=== PATIENT | male | born 1970 | race Two or more races ===

== ENCOUNTER 2023-11-25 18:43 | Inpatient (IN) | payer MEDICAID, OTHER ==
[~2023-11-25] VITALS: Ht 182.9 cm; Wt 97.7 kg
[2023-11-25] MEDS: SODIUM CHLORIDE 0.9% 1,000 ML IV SCH (01:26)
[2023-11-25 20:03] LABS: Basophils # (auto) 0.1 10 ^3/uL (0-0.2); Basophils % (auto) 0.4 % (0.0-2.0); Eosinophils # (auto) 0.2 10 ^3/uL (0-0.8); Eosinophils % (auto) 1.4 % (0.0-7.0); Hematocrit 45.2 % (41.0-53.0); Hemoglobin 14.9 g/dL (13.5-17.5); Lymphocytes # (auto) 1.4 10 ^3/uL (0.4-5.4); Lymphocytes % (auto) 9.5 % (10.0-50.0); Mean Corpuscular Hemoglobin 31.7 pg (28.0-32.0); Mean Corpuscular Volume 96.3 fL (80.0-100.0); Monocytes % (auto) 6.8 % (0.0-12.0); Neutrophils # (auto) 11.9 10 ^3/uL (1.6-8.6); Neutrophils % (auto) 81.9 % (37.0-80.0); Nucleated Red Blood Cells % 0.1 %; Red Blood Cells 4.69 10^6/uL (4.5-5.90); Red Cell Distribution Width 13.5 % (11.8-14.3); White Blood Cell 14.5 10^3/uL (4.4-10.8)
[2023-11-25 20:15] LABS: Chloride 95 mmol/L (98-107); Potassium 3.9 mmol/L (3.5-5.1); Sodium 127 mmol/L (136-145)
[2023-11-25 20:16] LABS: Anion Gap 5 (5-15); Calcium 7.9 mg/dL (8.7-10.4); Carbon Dioxide 27 mmol/L (20-30)
[2023-11-25 20:21] LABS: BUN/Creatinine Ratio 12.3 (10.0-20.0); Blood Urea Nitrogen 14 mg/dL (9-23); Lipase 22 U/L (12-53)
[2023-11-25 20:24] LABS: Glucose 440 mg/dL (74-106)
[2023-11-25] MEDS: ONDANSETRON HCL 4 MG/2 ML VIAL IM ONE (20:57)
[2023-11-25] MEDS: HYDROmorphone HCL 2 MG/ML VL/or syr IM ONE (20:57)
[2023-11-25] MEDS: INSULIN LISPRO (HUMAN) 100 UNITS/ML ML SC ONE (20:59)
[2023-11-25 21:07] LABS: Urine Bacteria FEW /hpf (None Seen); Urine Blood 2+ /uL (Negative); Urine Clarity HAZY (Clear); Urine Color Yellow (Yellow); Urine Protein, UAD 1+ (Negative); Urine Specific Gravity 1.021 (1.001-1.035); Urine WBC 453 /hpf (0 - 3)
[2023-11-25] MEDS: SODIUM CHLORIDE 0.9% 1,000 ML IV ONE (21:27)
[2023-11-25] MEDS ORDERED: ONDANSETRON HCL 4 MG/2 ML VIAL IV PRN (22:15)
[2023-11-25] MEDS ORDERED: DEXTROSE (50%) 50ML SYRG IV PRN (22:15)
[2023-11-25] MEDS ORDERED: DOCUSATE SOD 100 MG CAP PO PRN (22:15)
[2023-11-25] MEDS ORDERED: ACETAMINOPHEN 325 MG TAB PO PRN (22:15)
[2023-11-25] MEDS ORDERED: NITROGLYCERIN 0.4 MG SL TAB SL PRN (23:00)
[2023-11-25] MEDS ORDERED: MORPHINE SULFATE INJ 2 MG/ml SYRG IV PRN (23:00)
[2023-11-25] MEDS: CALCIUM GLUC 1,000mg/50ml-NS 50 ML IV SCH (23:05)
[2023-11-25] MEDS: levoFLOXacin 750MG 150 ML IV ONE (23:44)
[2023-11-25] MEDS: CEFTRIAXONE SODIUM 2 GM in D5W 5% 100 ML IV ONE (23:45)
[2023-11-25] MEDS: InsuLIN REG 1unit/0.01ml Soln (100units/ml) SC SCH (23:57)
[2023-11-25] MEDS: ACCU-CHEK COMFORT CURVE STRIP VI SCH (23:58)
[2023-11-26] VITALS (8 sets, daily range): BP systolic 121–131; BP diastolic 63–93; PULSE 69–99; RESP 16–22; TEMP 98.1–99.5; O2SAT 90–100
[2023-11-26] MEDS: SODIUM CHLORIDE 0.9% 1,000 ML IV ONE (00:18)
[2023-11-26] MEDS: INSULIN LANTUS (GLARGINE) 1 /0.01ml (100units/ml) SC SCH ×2 (00:31→21:51)
[2023-11-26] MEDS ORDERED: IBU600T PO (04:56)
[2023-11-26 05:38] LABS: Basophils # (auto) 0.1 10 ^3/uL (0-0.2); Basophils % (auto) 0.5 % (0.0-2.0); Eosinophils # (auto) 0.2 10 ^3/uL (0-0.8); Eosinophils % (auto) 1.8 % (0.0-7.0); Hematocrit 41.8 % (41.0-53.0); Hemoglobin 13.8 g/dL (13.5-17.5); Lymphocytes # (auto) 1.2 10 ^3/uL (0.4-5.4); Lymphocytes % (auto) 10.5 % (10.0-50.0); Mean Corpuscular Hemoglobin 32.3 pg (28.0-32.0); Mean Corpuscular Hgb Conc. 33.2 g/dL (32.0-36.0); Mean Corpuscular Volume 97.5 fL (80.0-100.0); Monocytes # (auto) 0.9 10 ^3/uL (0-1.3); Monocytes % (auto) 7.7 % (0.0-12.0); Neutrophils # (auto) 8.8 10 ^3/uL (1.6-8.6); Neutrophils % (auto) 79.5 % (37.0-80.0); Nucleated Red Blood Cells % 0.1 %; Red Blood Cells 4.28 10^6/uL (4.5-5.90); Red Cell Distribution Width 13.7 % (11.8-14.3); White Blood Cell 11.1 10^3/uL (4.4-10.8)
[2023-11-26 06:00] LABS: Albumin 2.7 g/dL (3.2-4.8); Alkaline Phosphatase 139 U/L (46-116); Anion Gap 6 (5-15); Aspartate Aminotransferase 15 U/L (13-40); BUN/Creatinine Ratio 8.2 (10.0-20.0); Bilirubin, Total 1.4 mg/dL (0.2-1.0); Blood Urea Nitrogen 8 mg/dL (9-23); Calcium 8.1 mg/dL (8.7-10.4); Carbon Dioxide 24 mmol/L (20-30); Chloride 101 mmol/L (98-107); Sodium 131 mmol/L (136-145)
[2023-11-26 06:01] LABS: Total Protein 7.2 g/dL (5.7-8.2)
[2023-11-26 06:04] LABS: Alanine Aminotransferase < 9 U/L (7-40); Glucose 320 mg/dL (74-106)
[2023-11-26] MEDS: MORPHINE SULFATE INJ 2 MG/ml SYRG IV PRN (06:57)
[2023-11-26] MEDS ORDERED: cefTRIAXone 1GM/50ML D5W 50 ML IV SCH (21:00)
[2023-11-26] MEDS: PIPERACILLIN-TAZOB 3.375GM 100 ML IV SCH (21:45)
[2023-11-27] VITALS (7 sets, daily range): BP systolic 106–142; BP diastolic 57–78; PULSE 73–91; RESP 18–19; TEMP 98.5–99.6; O2SAT 90–99
[2023-11-27 06:29] LABS: Basophils # (auto) 0 10 ^3/uL (0-0.2); Basophils % (auto) 0.5 % (0.0-2.0); Chloride 105 mmol/L (98-107); Eosinophils # (auto) 0.2 10 ^3/uL (0-0.8); Hematocrit 36.5 % (41.0-53.0); Hemoglobin 12.3 g/dL (13.5-17.5); Lymphocytes # (auto) 0.9 10 ^3/uL (0.4-5.4); Lymphocytes % (auto) 13.4 % (10.0-50.0); Mean Corpuscular Hemoglobin 32.6 pg (28.0-32.0); Mean Corpuscular Hgb Conc. 33.6 g/dL (32.0-36.0); Mean Corpuscular Volume 96.9 fL (80.0-100.0); Monocytes # (auto) 0.7 10 ^3/uL (0-1.3); Monocytes % (auto) 9.4 % (0.0-12.0); Neutrophils # (auto) 5.1 10 ^3/uL (1.6-8.6); Neutrophils % (auto) 73.7 % (37.0-80.0); Potassium 3.4 mmol/L (3.5-5.1); Red Blood Cells 3.77 10^6/uL (4.5-5.90); Red Cell Distribution Width 13.7 % (11.8-14.3); Sodium 135 mmol/L (136-145)
[2023-11-27 06:30] LABS: Anion Gap 6 (5-15); Carbon Dioxide 24 mmol/L (20-30)
[2023-11-27 06:31] LABS: Calcium 7.8 mg/dL (8.7-10.4)
[2023-11-27 06:35] LABS: BUN/Creatinine Ratio 8.2 (10.0-20.0); Blood Urea Nitrogen 8 mg/dL (9-23)
[2023-11-27 06:50] LABS: Glucose 191 mg/dL (74-106)
[2023-11-27] MEDS ORDERED: VANCOMYCIN PER PHARMACY 0 MG IV SCH (11:15)
[2023-11-27] MEDS: POTASSIUM EFFERVESENT TAB 25 MEQ PO ONE (11:37)
[2023-11-27] MEDS: VANCOMYCIN 1GM/200ML 200 ML IV ONE (11:39)
[2023-11-27] MEDS: HYDROcodone-ACET 5/325MG TAB PO PRN (15:15)
[2023-11-27] MEDS: VANCOMYCIN 1GM/200ML 200 ML IV SCH (19:55)
[2023-11-28 05:00] VITALS: BP 138/81; PULSE 84; RESP 18; TEMP 99; O2SAT 91
[2023-11-28 06:32] LABS: Chloride 104 mmol/L (98-107); Potassium 3.2 mmol/L (3.5-5.1); Sodium 135 mmol/L (136-145)
[2023-11-28 06:33] LABS: Anion Gap 5 (5-15); Calcium 7.8 mg/dL (8.5-10.1); Carbon Dioxide 26 mmol/L (20-30)
[2023-11-28 06:35] LABS: Basophils # (auto) 0 10 ^3/uL (0-0.2); Basophils % (auto) 0.4 % (0.0-2.0); Eosinophils # (auto) 0.3 10 ^3/uL (0-0.8); Eosinophils % (auto) 3.7 % (0.0-7.0); Hematocrit 36.4 % (41.0-53.0); Hemoglobin 12.3 g/dL (13.5-17.5); Lymphocytes # (auto) 1.3 10 ^3/uL (0.4-5.4); Lymphocytes % (auto) 16.8 % (10.0-50.0); Mean Corpuscular Hemoglobin 32.2 pg (28.0-32.0); Mean Corpuscular Hgb Conc. 33.7 g/dL (32.0-36.0); Mean Corpuscular Volume 95.4 fL (80.0-100.0); Monocytes # (auto) 0.7 10 ^3/uL (0-1.3); Monocytes % (auto) 8.8 % (0.0-12.0); Neutrophils # (auto) 5.3 10 ^3/uL (1.6-8.6); Neutrophils % (auto) 70.3 % (37.0-80.0); Nucleated Red Blood Cells % 0.1 %; Red Blood Cells 3.81 10^6/uL (4.5-5.90); Red Cell Distribution Width 13.3 % (11.8-14.3); White Blood Cell 7.6 10^3/uL (4.4-10.8)
[2023-11-28 06:38] LABS: BUN/Creatinine Ratio 9.2 (10.0-20.0); Blood Urea Nitrogen 8 mg/dL (9-23); Glucose 111 mg/dL (74-106)
[2023-11-28 08:00] VITALS: BP 122/62; PULSE 78; RESP 21; TEMP 97.9; O2SAT 94
[2023-11-28] MEDS: POTASSIUM EFFERVESENT TAB 25 MEQ PO ONE (14:34)
[2023-11-28 15:03] VITALS: BP 105/57; PULSE 79; RESP 20; TEMP 97.8; O2SAT 93
[2023-11-28 17:00] VITALS: BP 135/80; PULSE 74; RESP 20; TEMP 97.9; O2SAT 94
[2023-11-28] MEDS: levoFLOXacin 500 MG TAB PO SCH (17:42)
[2023-11-28 20:00] VITALS: PULSE 77; RESP 18; O2SAT 93
[2023-11-28 22:00] VITALS: BP 127/76; PULSE 74; RESP 18; TEMP 98.9; O2SAT 93
[2023-11-29 05:00] VITALS: BP 127/63; PULSE 78; RESP 19; TEMP 99.3; O2SAT 95
[2023-11-29 06:02] LABS: Basophils # (auto) 0 10 ^3/uL (0-0.2); Basophils % (auto) 0.6 % (0.0-2.0); Eosinophils # (auto) 0.2 10 ^3/uL (0-0.8); Eosinophils % (auto) 4.1 % (0.0-7.0); Hematocrit 36.1 % (41.0-53.0); Hemoglobin 12.2 g/dL (13.5-17.5); Lymphocytes # (auto) 1.1 10 ^3/uL (0.4-5.4); Lymphocytes % (auto) 18.1 % (10.0-50.0); Mean Corpuscular Hemoglobin 32.2 pg (28.0-32.0); Mean Corpuscular Hgb Conc. 33.8 g/dL (32.0-36.0); Mean Corpuscular Volume 95.4 fL (80.0-100.0); Monocytes # (auto) 0.5 10 ^3/uL (0-1.3); Monocytes % (auto) 8.9 % (0.0-12.0); Neutrophils # (auto) 4.1 10 ^3/uL (1.6-8.6); Neutrophils % (auto) 68.3 % (37.0-80.0); Nucleated Red Blood Cells % 0.1 %; Red Blood Cells 3.78 10^6/uL (4.5-5.90); Red Cell Distribution Width 13.6 % (11.8-14.3)
[2023-11-29 06:11] LABS: Chloride 104 mmol/L (98-107); Potassium 3.6 mmol/L (3.5-5.1); Sodium 137 mmol/L (136-145)
[2023-11-29 06:12] LABS: Anion Gap 6 (5-15); Calcium 7.9 mg/dL (8.5-10.1); Carbon Dioxide 27 mmol/L (20-30)
[2023-11-29 06:17] LABS: Blood Urea Nitrogen 7 mg/dL (9-23); Glucose 139 mg/dL (74-106)
[2023-11-29 08:00] VITALS: PULSE 74; PULSE 76; RESP 20; O2SAT 91
[2023-11-29 08:53] VITALS: BP 122/76; PULSE 76; RESP 20; TEMP 98.2; O2SAT 91
[2023-11-29 12:47] VITALS: BP 122/76; PULSE 76; RESP 20; TEMP 98.2; O2SAT 91
[2023-11-29 12:52] VITALS: BP 136/80; PULSE 66; RESP 20; TEMP 98; O2SAT 95
[2023-11-29] MEDS ORDERED: LEVO500T91 PO (14:20)
[2023-11-29] MEDS ORDERED: TRAM50TA2 PO (14:20)
[2023-11-29 14:41] VITALS: BP 136/80; PULSE 66; RESP 20; TEMP 98; O2SAT 95
== END 2023-11-29 16:25 | disposition home or self-care (01) | DRG 720 ==
LOC: ER 18:43 → TELE 22:48 → TELE-WESTW 11-26 02:07
PROVIDERS: ADMIT Nurse Practitioner Family; ATTEND Nurse Practitioner Acute Care
DX: A41.01 Sepsis due to Methicillin susceptible Staphylococcus aureus (principal); K76.6 Portal hypertension; E83.51 Hypocalcemia; E87.1 Hypo-osmolality and hyponatremia; N30.90 Cystitis, unspecified without hematuria; K74.60 Unspecified cirrhosis of liver; N10 Acute pyelonephritis; E11.65 Type 2 diabetes mellitus with hyperglycemia; F10.20 Alcohol dependence, uncomplicated; I10 Essential (primary) hypertension; K80.20 Calculus of gallbladder without cholecystitis without obstruction
CPT/HCPCS: 36415; 74176; 80048; 80053; 80202; 81001; 82962; 83036; 83690; 83880; 85025; 87086; 87088; 87186; G0378; J0696; J1815; J1956; J2405; J2543; J7060

== ENCOUNTER 2023-12-17 13:38 | Emergency (ER) | payer MEDICAID, OTHER ==
[~2023-12-17] VITALS: Ht 188 cm; Wt 109.2 kg
[~2023-12-17 13:38] MED LIST: IBU600T PO; LEVO500T91 PO; TRAM50TA2 PO
[2023-12-17] MEDS ORDERED: ACETAMINOPHEN 500 MG TAB PO ONE (14:00)
[2023-12-17 14:20] VITALS: PULSE 94; RESP 24; O2SAT 94
[2023-12-17 14:27] LABS: Hematocrit 36.4 % (41.0-53.0); Hemoglobin 12.4 g/dL (13.5-17.5); Mean Corpuscular Hemoglobin 31.7 pg (28.0-32.0); Mean Corpuscular Hgb Conc. 34.1 g/dL (32.0-36.0); Red Blood Cells 3.92 10^6/uL (4.5-5.90); Red Cell Distribution Width 13.7 % (11.8-14.3)
[2023-12-17 14:38] LABS: Basophils % (manual) 0 (0.0-2.0); Blast Cells 0; Eosinophils % (manual) 0 (0-7); Metamyelocytes % 0; Myelocytes % 0; Promyelocytes % 0; Reactive Lymphocytes 0
[2023-12-17 14:47] LABS: Alanine Aminotransferase 11 U/L (7-40); Albumin 2.9 g/dL (3.2-4.8); Alkaline Phosphatase 153 U/L (46-116); Anion Gap 10 (5-15); Aspartate Aminotransferase 23 U/L (13-40); BUN/Creatinine Ratio 8.6 (10.0-20.0); Bilirubin, Total 1.9 mg/dL (0.2-1.0); Blood Alcohol < 3.0 mg/dL (<10); Blood Urea Nitrogen 10 mg/dL (9-23); Calcium 8.2 mg/dL (8.5-10.1); Carbon Dioxide 23 mmol/L (20-30); Chloride 99 mmol/L (98-107); Glucose 233 mg/dL (74-106); Potassium 4.6 mmol/L (3.5-5.1); Sodium 132 mmol/L (136-145); Total Protein 8.6 g/dL (5.7-8.2)
[2023-12-17 14:54] LABS: INR 1.48 (0.9-1.15); Partial Thromboplastin Time 32.4 SEC (24.5-34.5); Prothrombin Time 15.1 sec (9.3-11.8)
[2023-12-17] MEDS: KETOROLAC TROMETH 30 MG/ML 1ML VIAL IV ONE (15:14)
[2023-12-17 15:18] LABS: Band Neutrophils % (manual) 5; Lymphocytes % (manual) 5 (10.0-50.0); Monocytes % (manual) 5 (0-12); Platelet Estimate Decreased; RBC Morphology Normal
[2023-12-17 15:54] LABS: Magnesium 1.2 mg/dL (1.6-2.6)
[2023-12-17] MEDS: VANCOMYCIN 1GM/200ML 200 ML IV ONE (16:54)
[2023-12-17] MEDS: LACTATED RINGER S IV ONE (16:56)
[2023-12-17 17:04] LABS: COVID19 ANTIGEN SOFIA FIA NEGATIVE (NEGATIVE); Rapid Influenza A Negative (Negative); Rapid Influenza B Negative (Negative)
[2023-12-17] MEDS: LIDOCAINE 2%HCL (LOCAL ANESTH.) INJ 10ml MDV IJ ONE (17:15)
[2023-12-17 17:29] VITALS: BP 91/51; PULSE 84; RESP 21; TEMP 100; O2SAT 97
[2023-12-17 17:29] LABS: Urine Bacteria NONE SEEN /hpf (None Seen); Urine Blood 2+ /uL (Negative); Urine Clarity HAZY (Clear); Urine Color Yellow (Yellow); Urine Hyaline Cast FEW /lpf (0 - 2); Urine Mucus FEW (None Seen); Urine Protein, UAD 1+ (Negative); Urine Specific Gravity 1.016 (1.001-1.035); Urine WBC 54 /hpf (0 - 3); Urine pH 5.5 (5.0-8.0)
[2023-12-17] MEDS: LIDOCAINE 2%HCL (LOCAL ANESTH.) INJ 10ml MDV ONE (17:32)
[2023-12-17] MEDS: CEFEPIME 2GM/50ML NS 50 ML IV ONE (17:32)
[2023-12-17 17:37] LABS: Amphetamine Screen, Urine Neg (NEGATIVE); Barbiturate Scree,Urine Neg (NEGATIVE); Benzodiazephine Screen, Urine Neg (NEGATIVE); Cocaine Screen, Urine Neg (NEGATIVE); Opiate Scree,Urine Neg (NEGATIVE); Phencyclidine Screen, Urine Neg (NEGATIVE)
[2023-12-17 17:38] LABS: Cannabinoid Screen, Urine Neg (NEGATIVE)
== END 2023-12-17 18:01 | disposition short-term general hospital (02) ==
LOC: ER 13:38
DX: A41.9 Sepsis, unspecified organism (principal); R41.82 Altered mental status, unspecified; K74.60 Unspecified cirrhosis of liver; N15.1 Renal and perinephric abscess; E11.9 Type 2 diabetes mellitus without complications; R07.89 Other chest pain; Z79.2 Long term (current) use of antibiotics; Z79.1 Long term (current) use of non-steroidal anti-inflammatories (NSAID); Z79.899 Other long term (current) drug therapy; Z20.822 Contact with and (suspected) exposure to COVID-19
CPT/HCPCS: 36415; 70450; 71045; 71250; 74176; 80053; 80307; 80320; 81001; 82140; 83605; 83735; 84484; 85007; 85027; 85610; 85730; 87040; 87426; 87804; 96365; 96375; 99285; J1885; J2001; J3370; 87077; 87186; J0692

== ENCOUNTER 2024-01-21 11:17 | Inpatient (IN) | payer OTHER ==
[~2024-01-21] VITALS: Ht 182.9 cm; Wt 97.8 kg
[2024-01-21 08:12] VITALS: PULSE 94; RESP 16; O2SAT 97
[2024-01-21 11:44] LABS: Urine Bacteria FEW /hpf (None Seen); Urine Blood 2+ /uL (Negative); Urine Clarity Clear (Clear); Urine Color Yellow (Yellow); Urine Hyaline Cast FEW /lpf (0 - 2); Urine Mucus FEW (None Seen); Urine Protein, UAD TRACE (Negative); Urine Specific Gravity 1.017 (1.001-1.035); Urine Urobilinogen Normal (Negative); Urine WBC 14 /hpf (0 - 3)
[2024-01-21 12:00] VITALS: PULSE 96; RESP 18; O2SAT 95
[2024-01-21] MEDS: SODIUM CHLORIDE 0.9% 1,000 ML IVB ONE (12:00)
[2024-01-21 12:06] LABS: Basophils # (auto) 0 10 ^3/uL (0-0.2); Basophils % (auto) 0.1 % (0.0-2.0); Eosinophils # (auto) 0.2 10 ^3/uL (0-0.8); Eosinophils % (auto) 0.8 % (0.0-7.0); Hematocrit 41.9 % (41.0-53.0); Hemoglobin 14.5 g/dL (13.5-17.5); Lymphocytes # (auto) 1.6 10 ^3/uL (0.4-5.4); Lymphocytes % (auto) 7.7 % (10.0-50.0); Mean Corpuscular Hgb Conc. 34.7 g/dL (32.0-36.0); Mean Corpuscular Volume 92.2 fL (80.0-100.0); Monocytes # (auto) 2.1 10 ^3/uL (0-1.3); Monocytes % (auto) 9.6 % (0.0-12.0); Neutrophils # (auto) 17.6 10 ^3/uL (1.6-8.6); Neutrophils % (auto) 81.8 % (37.0-80.0); Nucleated Red Blood Cells % 0.1 %; Red Blood Cells 4.54 10^6/uL (4.5-5.90); Red Cell Distribution Width 15.8 % (11.8-14.3); White Blood Cell 21.5 10^3/uL (4.4-10.8)
[2024-01-21 12:22] LABS: INR 1.27 (0.9-1.15); Prothrombin Time 13.1 sec (9.3-11.8)
[2024-01-21 12:24] LABS: Alanine Aminotransferase 12 U/L (7-40); Alkaline Phosphatase 159 U/L (46-116); Calcium 8.9 mg/dL (8.7-10.4); Carbon Dioxide 27 mmol/L (20-30); Chloride 89 mmol/L (98-107)
[2024-01-21 12:25] LABS: Albumin 3.2 g/dL (3.2-4.8); Anion Gap 8 (5-15); Aspartate Aminotransferase 17 U/L (13-40); BUN/Creatinine Ratio 9.3 (10.0-20.0); Bilirubin, Total 3.9 mg/dL (0.2-1.0); Blood Urea Nitrogen 9 mg/dL (9-23); Glucose 216 mg/dL (74-106); Lipase 29 U/L (12-53); Sodium 124 mmol/L (136-145); Total Protein 8.2 g/dL (5.7-8.2)
[2024-01-21 12:36] LABS: Lactic Acid w/Reflex 3.3 mmol/L (0.4-2.0); Potassium 2.5 mmol/L (3.5-5.1)
[2024-01-21] MEDS: KETOROLAC TROMETH 30 MG/ML 1ML VIAL IV ONE (12:56)
[2024-01-21] MEDS: PIPERACILLIN-TAZOB 3.375GM 100 ML IV ONE (13:07)
[2024-01-21] MEDS: POTASSIUM EFFERVESENT TAB 25 MEQ PO ONE (13:07)
[2024-01-21] MEDS ORDERED: ONDANSETRON HCL 4 MG/2 ML VIAL IV PRN (15:15)
[2024-01-21] MEDS ORDERED: DEXTROSE (50%) 50ML SYRG IV PRN (15:15)
[2024-01-21] MEDS ORDERED: DOCUSATE SOD 100 MG CAP PO PRN (15:15)
[2024-01-21] MEDS: POTASSIUM CHL 20 Meq TABLET PO ONE (15:30)
[2024-01-21] MEDS: SODIUM CHLORIDE 0.9% 1,000 ML IV SCH (15:47)
[2024-01-21] MEDS: DICYCLOMINE HCL (10MG/ML) 2 ML AMPULE IM ONE (15:54)
[2024-01-21] MEDS: ACCU-CHEK COMFORT CURVE STRIP VI SCH (17:16)
[2024-01-21] MEDS: InsuLIN REG 1unit/0.01ml Soln (100units/ml) SC SCH (17:37)
[2024-01-21] MEDS: PIPERACILLIN-TAZOB 3.375GM 100 ML IV SCH (18:05)
[2024-01-21] MEDS: DICYCLOMINE HCL 10 MG CAP PO SCH (18:05)
[2024-01-21 20:00] VITALS: BP 123/73; PULSE 97; RESP 18; RESP 20; TEMP 98.1; O2SAT 92
[2024-01-21 21:00] VITALS: BP 123/73; PULSE 97; RESP 18; TEMP 98.1; O2SAT 97
[2024-01-22] VITALS (8 sets, daily range): BP systolic 108–131; BP diastolic 61–81; PULSE 69–98; RESP 14–20; TEMP 98.1–99.5; O2SAT 97–99
[2024-01-22] MEDS: POTASSIUM CHL 20 Meq TABLET PO ONE (00:08)
[2024-01-22] MEDS: MORPHINE SULFATE INJ 2 MG/ml SYRG IV PRN (05:17)
[2024-01-22 06:56] LABS: Basophils # (auto) 0 10 ^3/uL (0-0.2); Basophils % (auto) 0.3 % (0.0-2.0); Eosinophils # (auto) 0.3 10 ^3/uL (0-0.8); Eosinophils % (auto) 1.8 % (0.0-7.0); Hematocrit 33.8 % (41.0-53.0); Lymphocytes # (auto) 1.6 10 ^3/uL (0.4-5.4); Mean Corpuscular Hemoglobin 32.5 pg (28.0-32.0); Mean Corpuscular Hgb Conc. 35.6 g/dL (32.0-36.0); Mean Corpuscular Volume 91.2 fL (80.0-100.0); Monocytes # (auto) 1.6 10 ^3/uL (0-1.3); Monocytes % (auto) 11.4 % (0.0-12.0); Neutrophils # (auto) 10.8 10 ^3/uL (1.6-8.6); Neutrophils % (auto) 75.5 % (37.0-80.0); Red Cell Distribution Width 14.8 % (11.8-14.3); White Blood Cell 14.3 10^3/uL (4.4-10.8)
[2024-01-22 07:31] LABS: Alanine Aminotransferase 14 U/L (7-40); Albumin 2.8 g/dL (3.2-4.8); Alkaline Phosphatase 122 U/L (46-116); Anion Gap 7 (5-15); Aspartate Aminotransferase 15 U/L (13-40); BUN/Creatinine Ratio 14.9 (10.0-20.0); Bilirubin, Total 2.9 mg/dL (0.2-1.0); Blood Urea Nitrogen 13 mg/dL (9-23); Calcium 7.9 mg/dL (8.5-10.1); Carbon Dioxide 26 mmol/L (20-30); Chloride 92 mmol/L (98-107); Glucose 164 mg/dL (74-106); Potassium 2.6 mmol/L (3.5-5.1); Sodium 125 mmol/L (136-145); Total Protein 6.3 g/dL (5.7-8.2)
[2024-01-22 16:34] LABS: Basophils # (auto) 0 10 ^3/uL (0-0.2); Basophils % (auto) 0.4 % (0.0-2.0); Eosinophils # (auto) 0.3 10 ^3/uL (0-0.8); Eosinophils % (auto) 2.2 % (0.0-7.0); Hematocrit 34.6 % (41.0-53.0); Hemoglobin 12.1 g/dL (13.5-17.5); Lymphocytes # (auto) 1.4 10 ^3/uL (0.4-5.4); Lymphocytes % (auto) 11.2 % (10.0-50.0); Mean Corpuscular Hemoglobin 31.8 pg (28.0-32.0); Mean Corpuscular Volume 90.7 fL (80.0-100.0); Monocytes # (auto) 1.7 10 ^3/uL (0-1.3); Monocytes % (auto) 13.8 % (0.0-12.0); Neutrophils # (auto) 9.2 10 ^3/uL (1.6-8.6); Neutrophils % (auto) 72.4 % (37.0-80.0); Red Blood Cells 3.81 10^6/uL (4.5-5.90); Red Cell Distribution Width 15.1 % (11.8-14.3); White Blood Cell 12.7 10^3/uL (4.4-10.8)
[2024-01-23] VITALS (7 sets, daily range): BP systolic 108–133; BP diastolic 66–78; PULSE 69–99; RESP 14–19; TEMP 97.2–98.7; O2SAT 93–98
[2024-01-23 06:51] LABS: Chloride 95 mmol/L (98-107); Sodium 128 mmol/L (136-145)
[2024-01-23 06:52] LABS: Anion Gap 4 (5-15); Calcium 7.8 mg/dL (8.5-10.1); Carbon Dioxide 29 mmol/L (20-30)
[2024-01-23 06:57] LABS: Blood Urea Nitrogen 9 mg/dL (9-23); Glucose 164 mg/dL (74-106)
[2024-01-23 07:03] LABS: Potassium 2.5 mmol/L (3.5-5.1)
[2024-01-23] MEDS: POTASSIUM CHL 20MEQ/100ML 100 ML IV ONE (08:40)
[2024-01-23] MEDS: POTASSIUM CHL 20 Meq TABLET PO ONE (08:40)
[2024-01-23] MEDS: SOD CHL 0.9%/ KCL 40MEQ 1,000 ML IV SCH (11:00)
[2024-01-23] MEDS: metroNIDAZOLE 500MG/100ML 100 ML IV SCH (14:00)
[2024-01-23] MEDS: VANCOMYCIN HCL 125 MG CAP PO SCH (17:45)
[2024-01-24] VITALS (7 sets, daily range): BP systolic 110–134; BP diastolic 64–82; PULSE 72–81; RESP 17–20; TEMP 97.8–98.4; O2SAT 96–100
[2024-01-24 05:38] LABS: Hematocrit 29.6 % (41.0-53.0); Hemoglobin 10.7 g/dL (13.5-17.5); Mean Corpuscular Hemoglobin 33.2 pg (28.0-32.0); Mean Corpuscular Hgb Conc. 36.1 g/dL (32.0-36.0); Mean Corpuscular Volume 92.1 fL (80.0-100.0); Red Blood Cells 3.21 10^6/uL (4.5-5.90); Red Cell Distribution Width 14.2 % (11.8-14.3); White Blood Cell 8.2 10^3/uL (4.4-10.8)
[2024-01-24 05:41] LABS: Chloride 99 mmol/L (98-107); Potassium 2.8 mmol/L (3.5-5.1); Sodium 131 mmol/L (136-145)
[2024-01-24 05:42] LABS: Anion Gap 2 (5-15); Calcium 7.7 mg/dL (8.7-10.4); Carbon Dioxide 30 mmol/L (20-30)
[2024-01-24 05:45] LABS: Basophils % (manual) 0 (0.0-2.0); Blast Cells 0; Promyelocytes % 0; Reactive Lymphocytes 0
[2024-01-24 05:47] LABS: BUN/Creatinine Ratio 8.2 (10.0-20.0); Blood Urea Nitrogen 6 mg/dL (9-23); Glucose 149 mg/dL (74-106)
[2024-01-24 08:04] LABS: Band Neutrophils % (manual) 8; Eosinophils % (manual) 4 (0-7); Lymphocytes % (manual) 17 (10.0-50.0); Metamyelocytes % 1; Monocytes % (manual) 18 (0-12); Myelocytes % 1; Platelet Estimate Decreased
[2024-01-24] MEDS: POTASSIUM EFFERVESENT TAB 25 MEQ PO SCH (12:04)
[2024-01-25 01:00] VITALS: BP 112/61; PULSE 82; RESP 17; TEMP 98.4; O2SAT 96
[2024-01-25 05:00] VITALS: BP 112/59; PULSE 80; RESP 17; TEMP 98.2; O2SAT 98
[2024-01-25 08:10] LABS: Chloride 105 mmol/L (98-107); Potassium 3.8 mmol/L (3.5-5.1); Sodium 133 mmol/L (136-145)
[2024-01-25 08:11] LABS: Anion Gap 2 (5-15); Carbon Dioxide 26 mmol/L (20-30)
[2024-01-25 08:12] LABS: Calcium 7.9 mg/dL (8.5-10.1)
[2024-01-25 08:16] LABS: Glucose 169 mg/dL (74-106)
[2024-01-25 08:19] LABS: BUN/Creatinine Ratio 6.9 (10.0-20.0); Blood Urea Nitrogen < 5 mg/dL (9-23)
[2024-01-25 09:00] VITALS: BP 115/71; PULSE 73; RESP 18; TEMP 98.9; O2SAT 98
[2024-01-25 13:00] VITALS: BP 116/69; PULSE 82; RESP 18; TEMP 99.1; O2SAT 98
[2024-01-25 17:00] VITALS: BP 114/66; PULSE 75; RESP 20; TEMP 98.5; O2SAT 99
[2024-01-25 21:00] VITALS: BP 115/72; PULSE 70; RESP 18; TEMP 99.9; O2SAT 98
[2024-01-26 05:00] VITALS: BP 118/70; PULSE 74; RESP 20; TEMP 98.4; O2SAT 92
[2024-01-26 06:03] LABS: Calcium 7.6 mg/dL (8.7-10.4); Chloride 109 mmol/L (98-107); Potassium 4.8 mmol/L (3.5-5.1); Sodium 136 mmol/L (136-145)
[2024-01-26 06:04] LABS: Anion Gap 2 (5-15); Carbon Dioxide 25 mmol/L (20-30)
[2024-01-26 06:09] LABS: Glucose 120 mg/dL (74-106)
[2024-01-26 06:31] LABS: BUN/Creatinine Ratio 8.1 (10.0-20.0); Blood Urea Nitrogen < 5 mg/dL (9-23)
[2024-01-26 08:10] VITALS: PULSE 74; RESP 19
[2024-01-26 09:00] VITALS: BP 100/73; PULSE 74; RESP 14; TEMP 98; O2SAT 95
[2024-01-26] MEDS ORDERED: SACC250C PO (12:46)
[2024-01-26] MEDS ORDERED: VANC125C3 PO (12:46)
[2024-01-26 13:00] VITALS: BP 134/86; PULSE 80; RESP 16; TEMP 97.6; O2SAT 97
[2024-01-26 14:00] VITALS: BP 134/80; PULSE 80; RESP 18; TEMP 97.6; O2SAT 97
== END 2024-01-26 14:50 | disposition home or self-care (01) | DRG 720 ==
LOC: ER 11:17 → OVERFLOW 15:10 → EAST 17:57
PROVIDERS: ADMIT Nurse Practitioner Acute Care; ATTEND Nurse Practitioner Acute Care
DX: A41.9 Sepsis, unspecified organism (principal); D69.6 Thrombocytopenia, unspecified; A04.72 Enterocolitis due to Clostridium difficile, not specified as recurrent; E87.1 Hypo-osmolality and hyponatremia; D63.8 Anemia in other chronic diseases classified elsewhere; K74.60 Unspecified cirrhosis of liver; N39.0 Urinary tract infection, site not specified; E87.5 Hyperkalemia; F10.21 Alcohol dependence, in remission; E11.65 Type 2 diabetes mellitus with hyperglycemia; I10 Essential (primary) hypertension; K80.20 Calculus of gallbladder without cholecystitis without obstruction; E87.6 Hypokalemia; Z79.899 Other long term (current) drug therapy
CPT/HCPCS: 36415; 71045; 74176; 80048; 80053; 81001; 82962; 83605; 83690; 83735; 84132; 84484; 85007; 85025; 85027; 85610; 85730; 87040; 87045; 87086; 87427; 87493; 93005; 96365; 96372; 96375; G0378; J1815; J1885; J2543; J3480; J3490